=== PATIENT | female | born 1980 | race African-American/Black ===

== ENCOUNTER 2020-09-17 19:18 | Emergency (ER) | payer OTHER ==
[~2020-09-17 19:18] MED LIST: AMLODIPINE BESY10 MG PO; CARBAMAZEPINE200 MG PO; CIPRODEX OTIC7.5 ML AU; IBUPROFEN800 MG PO; NAPROXEN500 MG PO
[2020-09-17 21:15] LABS: ALBUMIN 4.1 g/dL (3.4-5.0); BILIRUBIN - TOTAL 0.2 mg/dL (0.2-1.0); CREATININE 0.75 mg/dL (0.51-0.95); GLOBULIN (CALCULATION) 4.2 g/dL; POTASSIUM 3.7 mmol/L (3.5-5.1); TOTAL PROTEIN 8.3 g/dL (6.4-8.2)
[2020-09-17 21:29] LABS: BASOPHIL 0.8 % (0-2); EOSINOPHIL 1.9 % (0-5); HCT 40.6 % (37.0-47.0); LYMPHOCYTE 46.3 % (15-48); MCH 30.1 pg (25.0-31.0); MONOCYTE 8.6 % (0-12); MPV 12.8 fL (6.0-9.5); NEUTROPHIL 42.2 % (41-80); NRBC 0; PLT 226 K/uL (150-400); RBC 4.32 M/uL (4.20-5.40); RDW 13.3 % (11.5-14.0); WBC 8.5 K/uL (4.0-10.5)
[2020-09-17 21:31] LABS: BILIRUBIN NEGATIVE (NEGATIVE); BLOOD TRACE-INTACT Ery/uL (NEGATIVE); CLARITY CLEAR (CLEAR); COLOR YELLOW (YELLOW); GLUCOSE (U) NORMAL (NORMAL); LEUKOCYTES NEGATIVE Leu/uL (NEGATIVE); NITRITE NEGATIVE (NEGATIVE); PROTEIN NEGATIVE (NEGATIVE); pH 7.5 (5.0-9.0)
[2020-09-17 21:48] LABS: URINARY WBC RARE
[2020-09-17 21:49] LABS: BACTERIA TRACE
== END 2020-09-17 23:26 | disposition home or self-care (01) ==
LOC: FER 19:18
PROVIDERS: Nurse Practitioner Family
DX: K59.00 Constipation, unspecified (principal); R10.84 Generalized abdominal pain; I10 Essential (primary) hypertension; Z88.8 Allergy status to other drugs, medicaments and biological substances; Z79.899 Other long term (current) drug therapy
CPT/HCPCS: 36415; 80053; 81001; 85025; J7030; Q9967

== ENCOUNTER 2020-11-28 09:24 | Emergency (ER) | payer OTHER ==
[2020-11-28 11:17] LABS: ALBUMIN 3.8 g/dL (3.4-5.0); BILIRUBIN - TOTAL 0.3 mg/dL (0.2-1.0); BUN/CREAT RATIO (CALC) 12.9 RATIO; CREATININE 0.7 mg/dL (0.51-0.95); GLOBULIN (CALCULATION) 3.7 g/dL; POTASSIUM 4.1 mmol/L (3.5-5.1); TOTAL PROTEIN 7.5 g/dL (6.4-8.2)
[2020-11-28 11:46] LABS: BASOPHIL 0.6 % (0-2); EOSINOPHIL 1.9 % (0-5); HCT 39.7 % (37.0-47.0); HGB 12.7 g/dl (12.5-16.0); LYMPHOCYTE 31.8 % (15-48); MCH 29.9 pg (25.0-31.0); MCV 93.4 fL (78.0-100.0); MONOCYTE 7.8 % (0-12); MPV 12.3 fL (6.0-9.5); NEUTROPHIL 57.8 % (41-80); NRBC 0; PLT 230 K/uL (150-400); RBC 4.25 M/uL (4.20-5.40); RDW 13.2 % (11.5-14.0); WBC 6.8 K/uL (4.0-10.5)
[2020-11-28] MEDS ORDERED: ANTI-ITCH28 G1 TOP (12:05)
[2020-11-28] MEDS ORDERED: VIBRAMYCIN100 MG PO (12:05)
[2020-11-28] MEDS ORDERED: ZYRTEC10 MG PO (12:05)
== END 2020-11-28 12:40 | disposition home or self-care (01) ==
LOC: FER 09:24
PROVIDERS: Internal Medicine
DX: L03.211 Cellulitis of face (principal); J32.9 Chronic sinusitis, unspecified; I10 Essential (primary) hypertension; Z88.8 Allergy status to other drugs, medicaments and biological substances; Z79.899 Other long term (current) drug therapy
CPT/HCPCS: 36415; 70486; 80053; 85025

== ENCOUNTER → 2021-01-27 | Day surgery (SDC) | payer OTHER ==
[~2021-01-27] VITALS: Ht 163.8 cm; Wt 74.8 kg
[~2021-01-27] MED LIST changes: +ANTI-ITCH28 G1 TOP; +ATARAX25 MG PO; +COLACE100 MG PO; +DIOVAN80 MG PO; +LINZESS290 MCG PO; +LOPRESSOR50 MG PO; +MOTRIN600 MG PO; +NORVASC5 MG PO; +PERCOCET 5-3251 EACH PO; +VIBRAMYCIN100 MG PO; +VITAMIN D350 MC4 PO; +ZOFRAN4 M1 PO; +ZYRTEC10 MG PO
[2021-01-27 08:26] LABS: HCG (URINE) SCREEN NEGATIVE (NEGATIVE)
[2021-01-27 08:40] LABS: HCT 39.6 % (37.0-47.0); HGB 13.2 g/dl (12.5-16.0); MCH 30.1 pg (25.0-31.0); MCHC 33.3 g/dL (32.0-36.0); MCV 90.2 fL (78.0-100.0); MPV 12.9 fL (6.0-9.5); RBC 4.39 M/uL (4.20-5.40); RDW 13.7 % (11.5-14.0); WBC 5.9 K/uL (4.0-10.5)
[2021-01-27 09:03] LABS: BUN/CREAT RATIO (CALC) 19.7 RATIO; CREATININE 0.66 mg/dL (0.51-0.95)
[2021-01-27 09:12] LABS: POTASSIUM 4.2 mmol/L (3.5-5.1)
== END | disposition home or self-care (01) ==
LOC: FAS 08:00
PROVIDERS: Obstetrics & Gynecology
DX: N87.9 Dysplasia of cervix uteri, unspecified (principal); N72 Inflammatory disease of cervix uteri; D25.1 Intramural leiomyoma of uterus; N80.0 Endometriosis of uterus; N83.292 Other ovarian cyst, left side; I10 Essential (primary) hypertension; E66.3 Overweight; Z88.8 Allergy status to other drugs, medicaments and biological substances; Z98.51 Tubal ligation status
CPT/HCPCS: 36415; 80048; 84703; 86850; 86900; 86901; 93005; J0690; J1100; J1170; J1885; J2250; J2405; J2704; J2710; J3010; J7120

== ENCOUNTER 2021-05-23 16:38 | Emergency (ER) | payer OTHER ==
[2021-05-23 17:40] LABS: BASOPHIL 0.7 % (0-2); HGB 12.1 g/dl (12.5-16.0); LYMPHOCYTE 31.2 % (15-48); MCH 29.2 pg (25.0-31.0); MCHC 31.8 g/dL (32.0-36.0); MCV 91.8 fL (78.0-100.0); MONOCYTE 6.5 % (0-12); NRBC 0; PLT 264 K/uL (150-400); RBC 4.14 M/uL (4.20-5.40); RDW 13.6 % (11.5-14.0); WBC 7.2 K/uL (4.0-10.5)
[2021-05-23 17:48] LABS: NEUTROPHIL 60.3 % (41-80)
[2021-05-23 17:58] LABS: ALBUMIN 4.1 g/dL (3.4-5.0); BILIRUBIN - TOTAL 0.2 mg/dL (0.2-1.0); BUN/CREAT RATIO (CALC) 15.5 RATIO; CREATININE 0.84 mg/dL (0.51-0.95); POTASSIUM 3.2 mmol/L (3.5-5.1); TOTAL PROTEIN 8.1 g/dL (6.4-8.2)
[2021-05-23 18:05] LABS: LACTIC ACID 4.3 mmol/L (0.4-1.9)
[2021-05-23 19:22] LABS: BILIRUBIN NEGATIVE (NEGATIVE); BLOOD 1+ Ery/uL (NEGATIVE); CLARITY CLEAR (CLEAR); COLOR YELLOW (YELLOW); GLUCOSE (U) NORMAL (NORMAL); LEUKOCYTES NEGATIVE Leu/uL (NEGATIVE); NITRITE NEGATIVE (NEGATIVE); PROTEIN TRACE (LOW) mg/dL (NEGATIVE); SPECIFIC GRAVITY >=1.030 (1.001-1.030); UROBILINOGEN 0.2 mg/dL (0.2-1.0); pH 5.5 (5.0-9.0)
[2021-05-23 19:25] LABS: AMPHETAMINES NEGATIVE (NEGATIVE); BARBITURATES NEGATIVE (NEGATIVE); ECSTASY (MDMA) NEGATIVE (NEGATIVE); MARIJUANA (THC) NEGATIVE (NEGATIVE); METHADONE NEGATIVE (NEGATIVE); OPIATES NEGATIVE (NEGATIVE); OXYCODONE NEGATIVE (NEGATIVE)
[2021-05-23 19:29] LABS: AMORPHOUS URATES CRYSTALS MODERATE; BACTERIA TRACE
[2021-05-23] MEDS ORDERED: TEGRETOL200 MG PO (19:38)
== END 2021-05-23 20:10 | disposition home or self-care (01) ==
LOC: FER 16:38
PROVIDERS: Emergency Medicine
DX: G40.909 Epilepsy, unspecified, not intractable, without status epilepticus (principal); Z79.899 Other long term (current) drug therapy; Z20.822 Contact with and (suspected) exposure to COVID-19
CPT/HCPCS: 36415; 71045; 80053; 80305; 81001; 83605; 84145; 85025; J1885; J1953; U0002